=== PATIENT | female | born 1970 | race Caucasian/White ===

== ENCOUNTER 2018-05-16 06:21 | Emergency (ER) | payer OTHER ==
[2018-05-16] MEDS ORDERED: SPIR25TA80 PO (06:34)
[2018-05-16] MEDS ORDERED: LEVO75TA73 PO (06:34)
--- NOTE | 2018-05-16 06:50 | ER Report ---
History and Physical Time Seen By MD: 06:50 Hx. of Stated Complaint: PT REPORTS N/V/D. PT WAS DIAGNOSED WITH BRONCHITIS AT URGENT CARE. PT REPORTS HEADACHE. HPI/ROS CHIEF COMPLAINT: Nausea, vomiting, diarrhea, headache HISTORY OF PRESENT ILLNESS: Patient is a 47-year-old female who is here complaining of the above symptoms. Patient reports starting with cough and shortness of breath and was seen at that time on Sunday at urgent care at which point she was started on Augmentin. Patient subsequently developed nausea, vomiting, diarrhea approximately 2 days ago. Patient has tolerating oral intake but has decreased appetite. Denies urinary symptoms. Patient is afebrile, hemodynamically stable. She did take 8 mg of Zofran shortly prior to arrival. Patient did voice concern about possible carbon monoxide exposure. Patient's has similar symptoms. They have had their home tested for carbon monoxide at which point It was found to be negative. Patient reports some improvement of her respiratory symptoms. REVIEW OF SYSTEMS: Constitutional: No fever, no chills. Eyes: No discharge. ENT: No sore throat. Cardiovascular: No chest pain, no palpitations. Respiratory: + improving cough and improving shortness of breath. Gastrointestinal: No abdominal pain, + nausea, diarrhea and vomiting. Genitourinary: No hematuria or urinary symptoms Musculoskeletal: No back pain. Skin: No rashes. Neurological: + headache. Allergies: Coded Allergies: No Known Drug Allergies (Unverified , 05/16/18) Home Meds Active Scripts Metoclopramide Hcl (METOCLOPRAMIDE HCL) 10 Mg Tablet, 10 MG PO Q6-8H, #20 TAB Prov:JAXSON FUENTES DO 05/16/18 Reported Medications Spironolactone (SPIRONOLACTONE) 25 Mg Tablet, 25 MG PO BID, TAB 05/16/18 Levothyroxine Sodium (LEVOTHYROXINE SODIUM) 75 Mcg Tablet, 75 MCG PO QDAY, TAB 05/16/18 Constitutional Vital Sign - Last 24 Hours 05/16/18 05/16/18 05/16/18 05/16/18 06:25 06:27 06:30 06:51 Temp 98.2 Pulse 60 56 Resp 16 B/P (MAP) 118/71 (87) 118/71 115/68 (84) Pulse Ox 94 95 O2 Delivery Room Air 205/16/18 05/16/18 05/16/18 07:00 07:50 07:51 07:54 Pulse 53 B/P (MAP) 109/67 (81) 108/70 (83) 108/73 (85) Pulse Ox 96 Physical Exam General Appearance: The patient is alert, has no immediate need for airway protection and no signs of toxicity. No acute distress Eyes: Pupils equal and round no pallor or injection. ENT, Mouth: Mucous membranes are moist. Respiratory: There are no retractions, lungs are clear to auscultation. Cardiovascular: Regular rate and rhythm. Gastrointestinal: Abdomen is soft and non tender, no masses, bowel sounds normal. Neurological: No focal neurological findings Skin: Warm and dry, no rashes. Musculoskeletal: Neck is supple non tender. Extremities are nontender, nonswollen and have full range of motion. DIFFERENTIAL DIAGNOSIS: After history and physical exam differential diagnosis was considered for medication side effect, viral syndrome, pancreatitis, gastroenteritis, carbon monoxide poisoning, dehydration Medical Decision Making Data Points Result Diagram: 05/16/18 0724 05/16/18 0724 Laboratory Hematology Test 05/16/18 06:27 05/16/18 07:24 Influenza Virus Type A (PCR) Positive (NEGATIVE) Influenza Virus Type B (PCR) Negative (NEGATIVE) Red Blood Count 5.08 M/uL (4.17-5.56) Mean Corpuscular Volume 89.0 fL (80.0-96.0) Mean Corpuscular Hemoglobin 29.8 pg (26.0-33.0) Mean Corpuscular Hemoglobin Concent 33.5 g/dL (32.0-36.0) Red Cell Distribution Width 13.4 % (11.5-14.5) Mean Platelet Volume 7.5 fL (7.2-11.1) Neutrophils (%) (Auto) 70.6 % (39.4-72.5) Lymphocytes (%) (Auto) 17.5 % (17.6-49.6) Monocytes (%) (Auto) 10.5 % (4.1-12.4) Eosinophils (%) (Auto) 0.7 % (0.4-6.7) Basophils (%) (Auto) 0.7 % (0.3-1.4) Nucleated RBC Relative Count (auto) 0.0 /100WBC Neutrophils # (Auto) 4.9 K/uL (2.0-7.4) Lymphocytes # (Auto) 1.2 K/uL (1.3-3.6) Monocytes # (Auto) 0.7 K/uL (0.3-1.0) Eosinophils # (Auto) 0.1 K/uL (0.0-0.5) Basophils # (Auto) 0.1 K/uL (0.0-0.1) Nucleated RBC Absolute Count (auto) 0.00 K/uL Carboxyhemoglobin 1.4 % (< 5.0) Sodium Level 140 mmol/L (137-145) Potassium Level 4.3 mmol/L (3.5-5.0) Chloride Level 103 mmol/L (98-107) Carbon Dioxide Level 31 mmol/L (22-31) Blood Urea Nitrogen 14 mg/dl (7-18) Creatinine 1.00 mg/dl (0.52-1.04) Glomerular Filtration Rate Calc 59.2 Random Glucose 90 mg/dl (75-110) Calcium Level 9.1 mg/dl (8.4-10.2) Total Bilirubin 0.4 mg/dl (0.2-1.3) Aspartate Amino Transf (AST/SGOT) 73 U/L (0-35) Alanine Aminotransferase (ALT/SGPT) 130 U/L (0-56) Alkaline Phosphatase 124 U/L (0-126) Total Protein 7.6 g/dl (6.3-8.2) Albumin 4.3 g/dl (3.5-5.0) Lipase 49 U/L (23-300) Chemistry Test 05/16/18 06:27 05/16/18 07:24 Influenza Virus Type A (PCR) Positive (NEGATIVE) Influenza Virus Type B (PCR) Negative (NEGATIVE) White Blood Count 7.0 k/uL (4.5-11.0) Red Blood Count 5.08 M/uL (4.17-5.56) Hemoglobin 15.1 g/dL (12.0-16.0) Hematocrit 45.2 % (34.0-47.0) Mean Corpuscular Volume 89.0 fL (80.0-96.0) Mean Corpuscular Hemoglobin 29.8 pg (26.0-33.0) Mean Corpuscular Hemoglobin Concent 33.5 g/dL (32.0-36.0) Red Cell Distribution Width 13.4 % (11.5-14.5) Platelet Count 183 K/uL (150-450) Mean Platelet Volume 7.5 fL (7.2-11.1) Neutrophils (%) (Auto) 70.6 % (39.4-72.5) Lymphocytes (%) (Auto) 17.5 % (17.6-49.6) Monocytes (%) (Auto) 10.5 % (4.1-12.4) Eosinophils (%) (Auto) 0.7 % (0.4-6.7) Basophils (%) (Auto) 0.7 % (0.3-1.4) Nucleated RBC Relative Count (auto) 0.0 /100WBC Neutrophils # (Auto) 4.9 K/uL (2.0-7.4) Lymphocytes # (Auto) 1.2 K/uL (1.3-3.6) Monocytes # (Auto) 0.7 K/uL (0.3-1.0) Eosinophils # (Auto) 0.1 K/uL (0.0-0.5) Basophils # (Auto) 0.1 K/uL (0.0-0.1) Nucleated RBC Absolute Count (auto) 0.00 K/uL Carboxyhemoglobin 1.4 % (< 5.0) Glomerular Filtration Rate Calc 59.2 Calcium Level 9.1 mg/dl (8.4-10.2) Total Bilirubin 0.4 mg/dl (0.2-1.3) Aspartate Amino Transf (AST/SGOT) 73 U/L (0-35) Alanine Aminotransferase (ALT/SGPT) 130 U/L (0-56) Alkaline Phosphatase 124 U/L (0-126) Total Protein 7.6 g/dl (6.3-8.2) Albumin 4.3 g/dl (3.5-5.0) Lipase 49 U/L (23-300) ED Course/Re-evaluation ED Course Patient is a 39-year-old female here with complaints of nausea, vomiting, diarrhea after being started on Augmentin on Sunday for bronchitis. Patient reports improvement of her respiratory symptoms which included cough and shortness breath. Patient reports that her nausea, vomiting and diarrhea started approximately 2 days ago. Patient's symptoms may be caused by Augmentin, viral s yndrome. Patient did voice concern about possible carbon monoxide exposure. CBC, CMP, lipase, carboxyhemoglobin were checked. Flu was positive however since her symptoms started on Sunday, patient is out of the window for Tamiflu. I discussed these findings with the patient and recommended symptom management, hydration, antiemetics and Imodium as needed. Patient voiced understanding of plan. Carboxyhemoglobin, CBC, CMP, lipase were unremarkable. Patient was given a prescription for Reglan. Close PCP follow-up recommended. Return precautions provided Decision to Disposition Date: May 16, 2018 Decision to Disposition Time: 07:49 Depart Departure Latest Vital Signs Vital Signs Date Time Temp Pulse Resp B/P (MAP) Pulse Ox O2 Delivery O2 Flow Rate FiO2 05/16/18 07:54 108/73 (85) 05/16/18 07:51 53 96 05/16/18 06:27 98.2 16 Room Air Impression: Primary Impression: Flu Condition: Improved Disposition: HOME OR SELF-CARE New Scripts Metoclopramide Hcl (METOCLOPRAMIDE HCL) 10 Mg Tablet 10 MG PO Q6-8H, #20 TAB Prov: JAXSON FUENTES DO 05/16/18 Patient Instructions: Influenza (DC) Additional Instructions: Please drink plenty of water. You were diagnosed with influenza A. You may take Reglan every 6-8 hours as needed for nausea. Please return immediately if you develop worsening symptoms, inability to keep down food or fluids, high fevers, abdominal pains. Please follow-up with your family doctor in the next 48 hours for repeat evaluation JAXSON FUENTES DO May 16, 2018 06:50
[2018-05-16] MEDS ORDERED: METOCLOPRAMIDE 10 MG TAB PO ONE (07:00)
[2018-05-16 07:31] LABS: PLATELET COUNT, AUTOMATED 183 K/uL (150-450)
[2018-05-16] MEDS ORDERED: METO-224 PO (07:51)
[2018-05-16 07:54] VITALS: BP 108/73
== END 2018-05-16 07:57 | disposition home or self-care (01) ==
LOC: ER 06:57
DX: J11.1 Influenza due to unidentified influenza virus with other respiratory manifestations (principal)
CPT/HCPCS: 36415; 82375; 83690; 85025; 87502; 99283; J8597; 82040; 82247; 82310; 82374; 82435; 82565; 82947; 84075; 84132; 84155; 84295; 84450; 84460; 84520

== ENCOUNTER 2018-05-18 05:32 | Emergency (ER) | payer OTHER ==
[~2018-05-18 05:32] MED LIST: LEVO75TA73 PO; METO-224 PO; SPIR25TA80 PO
[2018-05-18 05:38] VITALS: BP 139/97
--- NOTE | 2018-05-18 05:40 | ER Report ---
History and Physical Time Seen By MD: 05:36 HPI/ROS CHIEF COMPLAINT: Shaky, anxious, pacing, nausea HISTORY OF PRESENT ILLNESS: 47-year-old female presents back to the ER. She was seen yesterday morning and diagnosed with influenza A. She's been sick for several weeks. Patient was seen a week ago at urgent care and given Augmentin which she took for 4 days, which causes diarrhea and vomiting and she discontinued it. She's been feeling quite achy and ill. She also is living in a new house and they were concerned about toxic chemicals leeching from the new building products that were in her house. They also wanted to be checked for carbon monoxide a carbon monoxide level was unremarkable yesterday morning. Patient was discharged home on metoclopramide. Patient and her admit that she's been having anxiety for 2 years related to work stress. She's been feeling depressed. She was given Reglan yesterday to control her nausea. After taking several doses. She became much more anxious and was wondering if she had an adverse reaction to the metoclopramide. REVIEW OF SYSTEMS: Respiratory: No cough, no dyspnea. Cardiovascular: No chest pain, no palpitations. Gastrointestinal: No vomiting, no abdominal pain. Musculoskeletal: As above Allergies: Coded Allergies: levofloxacin (Verified Allergy, Severe, HALLUCINATIONS, 05/18/18) metoclopramide (Verified Allergy, Severe, HALLUCINATIONS, 05/18/18) Home Meds Active Scripts Hydrocodone Bit/Acetaminophen (HYDROCODON-ACETAMINOPHEN 5-325) 1 Each Tablet, 1 EACH PO Q4-6H PRN for pain or cough suppression, #12 TAKE ONE TABLET BY MOUTH EVERY 4-6 HOURS NEEDED FOR PAIN Prov:ANTHONY LOOMIS Teddy DO 05/18/18 Hydroxyzine Hcl (HYDROXYZINE HCL) 25 Mg Tablet, 1-2 TAB PO Q6-8H PRN for anxiety or nausea, #30 Prov:ANTHONY LOOMIS Teddy DO 05/18/18 Lorazepam (LORAZEPAM) 1 Mg Tab, 1 TAB PO Q6-8H PRN for anxiety, #15 TAB Prov:EBONIEANTHONY Espinal DO 05/18/18 Metoclopramide Hcl (METOCLOPRAMIDE HCL) 10 Mg Tablet, 10 MG PO Q6-8H, #20 TAB Prov:JAXSON FUENTES DO 05/16/18 Reported Medications Spironolactone (SPIRONOLACTONE) 25 Mg Tablet, 25 MG PO BID, TAB 05/16/18 Levothyroxine Sodium (LEVOTHYROXINE SODIUM) 75 Mcg Tablet, 75 MCG PO QDAY, TAB 05/16/18 Past Medical/Surgical History Anxiety and depression Reviewed Nurses Notes: Yes Old Medical Records Reviewed: Yes Constitutional Vital Sign - Last 24 Hours 05/18/18 05/18/18 05/18/18 05:38 05:38 06:02 Temp 98.0 Pulse 70 64 Resp 22 18 B/P (MAP) 139/97 139/97 (111) Pulse Ox 91 94 O2 Delivery Room Air Room Air Physical Exam Vital signs stable, afebrile, pulse ox normal General Appearance: The patient is alert, has no immediate need for airway protection and no current signs of toxicity. Patient very anxious and agitated rubbing her stomach, she appears very fatigued and worn out. HEENT: Pupils equal and round no injection. TMs normal, oropharynx without redness or exudate Respiratory: Chest is non tender, lungs are clear to auscultation. No wheezing or rails Cardiac: regular rate and rhythm, no murmur Gastrointestinal: Abdomen is soft and non tender, no masses, bowel sounds hyperactive. Musculoskeletal: Neck: Neck is supple and non tender. No lymphadenopathy Extremities have full range of motion and are non tender. No edema or calf tenderness Skin: No rashes or lesions. DIFFERENTIAL DIAGNOSIS: After history and physical exam differential diagnosis was considered for adult fever including but not limited to viral syndromes including influenza, urinary tract infection, pneumonia and sepsis. Gastroenteritis, viral syndrome, food poisoning, Clostridium difficile diarrhea Medical Decision Making Data Points Laboratory Hematology Test 05/18/18 05:52 Lactate 1.0 mmol/L (0.7-2.1) Chemistry Test 05/18/18 05:52 Lactate 1.0 mmol/L (0.7-2.1) EKG/Imaging Imaging X-ray: Two-view chest x-ray was obtained. I viewed the images myself on the PACS system. My interpretation of the images is: No infiltrate, no effusion, normal mediastinum. The radiologist interpretation had no clinically significant variation from this interpretation. ED Course/Re-evaluation Clinical Indication for ER IV: Hydration, IV Access ED Course Patient was admitted to an examination room. H&P was done. The differential diagnoses was considered. Patient with agitation. She may be having an adverse reaction to metoclopramide. Patient also with underlying anxiety for 2 years. Patient was just today, diagnosed with influenza A. She's also been having diarrhea after taking Augmentin. She could potentially have cluster Ditzel diarrhea. I did ask her to give us a specimen of diarrhea. She had to go while present in the emergency department. She was aggressively hydrated with a liter saline. She was given Benadryl 12 5 mg IV to reverse any potential adverse effects from the metoclopramide. Patient was also given hydrocodone 5/325 for cough suppression and pain relief. A lactate was done which is unremarkable. Chest x-ray was performed which is unremarkable, esterase laboratory studies were reviewed. Patient after approximately 45 minutes is feeling much better after being medicated. She is resting comfortably. She'll be discharged home on hydroxyzine and Lortab for symptomatically relief of her flu symptoms. She's also given a prescription for Ativan for severe panic attacks. She is advised to follow-up with and get established for care. Decision to Disposition Date: May 18, 2018 Decision to Disposition Time: 06:20 Depart Departure Latest Vital Signs Vital Signs Date Time Temp Pulse Resp B/P (MAP) Pulse Ox O2 Delivery O2 Flow Rate FiO2 05/18/18 06:02 64 18 94 Room Air 05/18/18 05:38 139/97 (111) 05/18/18 05:38 98.0 Impression: Primary Impression: Adverse drug reaction Additional Impressions: Anxiety attack Influenza A Diarrhea due to drug Condition: Improved Disposition: HOME OR SELF-CARE Referrals: MALICK MICHAELS MD New Scripts Hydrocodone Bit/Acetaminophen (HYDROCODON-ACETAMINOPHEN 5-325) 1 Each Tablet 1 EACH PO Q4-6H PRN for pain or cough suppression, #12 TAKE ONE TABLET BY MOUTH EVERY 4-6 HOURS NEEDED FOR PAIN Prov: ANTHONY LOOMIS DO 05/18/18 Hydroxyzine Hcl (HYDROXYZINE HCL) 25 Mg Tablet 1-2 TAB PO Q6-8H PRN for anxiety or nausea, #30 Prov: ANTHONY LOOMIS DO 05/18/18 Lorazepam (LORAZEPAM) 1 Mg Tab 1 TAB PO Q6-8H PRN for anxiety, #15 TAB Prov: ANTHONY LOOMIS DO 05/18/18 Patient Instructions: Anxiety (ED), Clear Liquid Diet (ED) Additional Instructions: Use hydroxyzine for drying up a cough, and antinausea medicine, may also be used for anxiety 1-2 pills every 6-8 hours as needed Take hydrocodone 5/325 to suppress cough and really loose body aches Take ibuprofen 200 mg 3 tablets 3 times a day to reduce fever and reduce inflammation in your intestines Follow clear liquid diet for 24-48 hours and advance to the brat diet, bananas, rice, applesauce and toast for the next 24 hours, avoid fatty food, greasy foods, vegetables and dairy for at least 2-3 days Take Ativan/lorazepam 1 mg every 6-8 hours as needed for severe anxiety List Reglan/metoclopramide as an allergy in the future Follow-up with primary care Dr Michaels for treatment of depression and anxiety, and other health maintenance issues. Problem Qualifiers Primary Impression: Adverse drug reaction Encounter type: initial encounter Qualified Codes: T50.905A - Adverse effect of unspecified drugs, medicaments and biological substances, initial encounter ANTHONY LOOMIS DO May 18, 2018 05:40
[2018-05-18] MEDS ORDERED: diphenhydrAMINE 50 MG/ML VIAL IVP ONE (05:45)
[2018-05-18] MEDS ORDERED: APAP/HYDROCODONE 325/5 TAB PO ONE (05:45)
[2018-05-18] MEDS ORDERED: NS(*) 0.9% 1000 ML BAG 1,000 ML IV ONE (05:45)
[2018-05-18] MEDS ORDERED: HYDR-4225 PO (06:27)
[2018-05-18] MEDS ORDERED: LOR1 PO (06:27)
[2018-05-18] MEDS ORDERED: LOR5/325 PO (06:27)
--- NOTE | 2018-05-18 06:43 | RADIOLOGY IMAGING REPORT ---
FACILITY: [facility] PATIENT NAME: Aura Ordoñez : 1970 MR: [id number] V: [id number] EXAM DATE: ORDERING PHYSICIAN: ANTHONY LOOMIS TECHNOLOGIST: Location: [facility] Patient: Aura Ordoñez : 1970 Visit/Account:[id number] Date of Sevice: 05/18/2018 TWO VIEW CHEST 05/18/2018 5:43 AM. INDICATION: Cough, dyspnea, influenza A positive. COMPARISON: None. FINDINGS: Lungs are well-expanded. The lungs are clear. No pneumothorax or pleural effusion. Pulmo nary vasculature is unremarkable. Heart size is normal. IMPRESSION: No acute abnormality. Report Dictated By: Zack Jasso MD at 05/18/2018 6:39 AM Report E-Signed By: Zack Jasso MD at 05/18/2018 6:40 AM WSN:[id number]
[2018-05-18] MEDS ORDERED: ACET/HYDROC 5/325MG TH ER ONLY 2 TAB/BOTTLE PO ONE (06:45)
[2018-05-18] MEDS ORDERED: hydrOXYzine 25 MG TAB TH 2 TAB/BOTTLE PO ONE (06:45)
== END 2018-05-18 07:05 | disposition home or self-care (01) ==
LOC: ER 05:37
DX: T50.905A Adverse effect of unspecified drugs, medicaments and biological substances, initial encounter (principal); J09.X2 Influenza due to identified novel influenza A virus with other respiratory manifestations; R19.7 Diarrhea, unspecified; F41.0 Panic disorder [episodic paroxysmal anxiety]
CPT/HCPCS: 71046; 83605; 96361; 96374; 99283; J1200; J7030

== ENCOUNTER → 2018-06-04 | Outpatient (CLI) | payer OTHER ==
[~2018-06-04] MED LIST changes: +HYDR-4225 PO; +HYDR-4228 PO; +LOR1 PO; +LOR5/325 PO
== END ==
LOC: LAB 15:35
PROVIDERS: ATTEND Emergency Medicine
DX: R94.5 Abnormal results of liver function studies (principal); N39.0 Urinary tract infection, site not specified
CPT/HCPCS: 36415; 81001; 82040; 82247; 82248; 84075; 84155; 84450; 84460

== ENCOUNTER → 2018-06-26 | Outpatient (CLI) | payer OTHER | LOC: LAB 07:41 | PROVIDERS: ATTEND Emergency Medicine | DX: R74.8 Abnormal levels of other serum enzymes (principal) | CPT/HCPCS: 36415; 82040; 82247; 82248; 84075; 84155; 84450; 84460 ==

== ENCOUNTER 2018-06-29 07:58 | Emergency (ER) | payer OTHER ==
--- NOTE | 2018-06-29 08:22 | ER Report ---
History and Physical Time Seen By MD: 08:10 [facility]/ROS CHIEF COMPLAINT: Dysuria HISTORY OF PRESENT ILLNESS: She is a 47-year-old female who presents with complaint of increased urinary frequency burning on urination painful urination over the last few days. She states she was recently treated with Macrobid approximately one month ago for urinary tract infection and did have some improvement but feels that she did not have complete resolution of her symptoms. She denies any fevers or chills. She reports the pain in the suprapubic region. She also admits to a history of having elevated liver enzymes and is being worked up by Dr. Michaels as an outpatient and has a ultrasound scheduled for Sunday. REVIEW OF SYSTEMS: : Recent urinary frequency and burning on urination Musculoskeletal: Low back pain but no flank pain. Allergies: Coded Allergies: levofloxacin (Verified Allergy, Severe, HALLUCINATIONS, 06/29/18) metoclopramide (Verified Allergy, Severe, HALLUCINATIONS, 06/29/18) Home Meds Active Scripts Phenazopyridine Hcl (PHENAZOPYRIDINE HCL) 200 Mg Tablet, 200 MG PO TID for 3 Days, #9 TAB 0 Refills Prov:RENETTA VERGARA MD 06/29/18 Cephalexin 500 Mg Tab (KEFLEX 500 MG TAB) 500 Mg Tablet, 500 MG PO Q6H for 5 Days, #20 TAB 0 Refills TAKE ONE TABLET BY MOUTH EVERY SIX HOURS Prov:RENETTA VERGARA MD 06/29/18 Hydroxyzine Hcl (HYDROXYZINE HCL) 50 Mg Tablet, 50 MG PO QID for Anxiety, #30 TAB 3 Refills Prov:MALICK MICHAELS MD 06/04/18 Reported Medications Spironolactone (SPIRONOLACTONE) 25 Mg Tablet, 25 MG PO BID, TAB 05/16/18 Levothyroxine Sodium (LEVOTHYROXINE SODIUM) 75 Mcg Tablet, 75 MCG PO QDAY, TAB 05/16/18 Past Medical/Surgical History Hypothyroidism Constitutional Vital Sign - Last 24 Hours 06/29/18 08:09 Temp 97.9 Pulse 64 Resp 12 B/P (MAP) 118/74 Pulse Ox 97 O2 Delivery Room Air Physical Exam General Appearance: The patient is alert, has no immediate need for airway protection and no current signs of toxicity. Eyes: Pupils equal and round no injection. Respiratory: Chest is non tender, lungs are clear to auscultation. Cardiac: regular rate and rhythm Gastrointestinal: Abdomen is soft and non tender, no masses, bowel sounds normal. Back: No CVA tenderness Medical Decision Making Data Points Laboratory Hematology Test 06/29/18 08:02 Urine Color Straw Urine Clarity Clear Urine pH 6.0 pH (4.8-9.5) Urine Specific [place] 1.009 Urine Protein Negative mg/dL (NEGATIVE) Urine Glucose (UA) Negative mg/dL (NEGATIVE) Urine Ketones Negative mg/dL (NEGATIVE) Urine Blood Negative (NEGATIVE) Urine Nitrite Negative (NEGATIVE) Urine Bilirubin Negative (NEGATIVE) Urine Urobilinogen Negative mg/dL (0.2-1.9) Urine Leukocyte Esterase Negative (NEGATIVE) Urine RBC <1 /HPF (0-2/HPF) Urine WBC 2 /HPF (0-5/HPF) Urine Squamous Epithelial Cells Many /LPF (</=FEW) Urine Bacteria Few /HPF (NONE-FEW) Urine Mucus None /HPF (NONE-FEW) Urine HCG, Qualitative Negative (NEGATIVE) Chemistry Test 06/29/18 08:02 Urine Color Straw Urine Clarity Clear Urine pH 6.0 pH (4.8-9.5) Urine Specific [place] 1.009 Urine Protein Negative mg/dL (NEGATIVE) Urine Glucose (UA) Negative mg/dL (NEGATIVE) Urine Ketones Negative mg/dL (NEGATIVE) Urine Blood Negative (NEGATIVE) Urine Nitrite Negative (NEGATIVE) Urine Bilirubin Negative (NEGATIVE) Urine Urobilinogen Negative mg/dL (0.2-1.9) Urine Leukocyte Esterase Negative (NEGATIVE) Urine RBC <1 /HPF (0-2/HPF) Urine WBC 2 /HPF (0-5/HPF) Urine Squamous Epithelial Cells Many /LPF (</=FEW) Urine Bacteria Few /HPF (NONE-FEW) Urine Mucus None /HPF (NONE-FEW) Urine HCG, Qualitative Negative (NEGATIVE) Urinalysis Test 06/29/18 08:02 Urine Color Straw Urine Clarity Clear Urine pH 6.0 pH (4.8-9.5) Urine Specific [place] 1.009 Urine Protein Negative mg/dL (NEGATIVE) Urine Glucose (UA) Negative mg/dL (NEGATIVE) Urine Ketones Negative mg/dL (NEGATIVE) Urine Blood Negative (NEGATIVE) Urine Nitrite Negative (NEGATIVE) Urine Bilirubin Negative (NEGATIVE) Urine Urobilinogen Negative mg/dL (0.2-1.9) Urine Leukocyte Esterase Negative (NEGATIVE) Urine RBC <1 /HPF (0-2/HPF) Urine WBC 2 /HPF (0-5/HPF) Urine Squamous Epithelial Cells Many /LPF (</=FEW) Urine Bacteria Few /HPF (NONE-FEW) Urine Mucus None /HPF (NONE-FEW) Urine HCG, Qualitative Negative (NEGATIVE) ED Course/Re-evaluation ED Course 06/29/2018 8:21:03 am plan at this time will be to check urinalysis we'll also review the patient's medical records and liver enzyme testing. 06/29/2018 8:27:32 am awaiting results of urinalysis review of the electronic medical record shows patient does have very mild elevation of her transaminases. Do not feel that we need to address this at this time she does have appropriate follow-up with her primary care provider and is scheduled for an ultrasound on Sunday. 06/29/2018 8:30:01 am urinalysis is essentially unremarkable and not a clean specimen as there are many epithelial cells and some bacteria. Based on the patient's symptoms were treated empirically with oral Keflex for the next 5 days along with Pyridium I do feel the patient probably should follow-up with urology if symptoms persist. Decision to Disposition Date: Jun 29, 2018 Decision to Disposition Time: 08:41 Depart Departure Latest Vital Signs Vital Signs Date Time Temp Pulse Resp B/P (MAP) Pulse Ox O2 Delivery O2 Flow Rate FiO2 06/29/18 08:09 97.9 64 12 118/74 97 Room Air Impression: Primary Impression: Dysuria Condition: Improved Disposition: HOME OR SELF-CARE Referrals: MALICK MICHAELS MD (PCP) follow up for ultrasound on Sunday and then for follow up of elevated liver enzymes HUI CARTWRIGHT MD if your urinary symptoms persist after completion of the antibiotics; schedule a follow up appointment for further evaluation New Scripts Phenazopyridine Hcl (PHENAZOPYRIDINE HCL) 200 Mg Tablet 200 MG PO TID for 3 Days, #9 TAB 0 Refills Prov: RENETTA VERGARA MD 06/29/18 Cephalexin 500 Mg Tab (KEFLEX 500 MG TAB) 500 Mg Tablet 500 MG PO Q6H for 5 Days, #20 TAB 0 Refills TAKE ONE TABLET BY MOUTH EVERY SIX HOURS Prov: RENETTA VERGARA MD 06/29/18 Patient Instructions: Dysuria (ED) RENETTA VERGARA MD Jun 29, 2018 08:22
[2018-06-29] MEDS ORDERED: PHEN200T32 PO (08:32)
[2018-06-29] MEDS ORDERED: CEPH500T7 PO (08:32)
[2018-06-29 08:41] VITALS: BP 113/74
[2018-07-01] MEDS ORDERED: ESC10 PO (17:03)
== END 2018-06-29 08:40 | disposition home or self-care (01) ==
LOC: ER 08:25
DX: R30.0 Dysuria (principal)
CPT/HCPCS: 81001; 81025; 87088; 99282

== ENCOUNTER 2018-07-04 14:12 | Emergency (ER) | payer OTHER ==
[~2018-07-04 14:12] MED LIST changes: +CEPH500T7 PO; +ESC10 PO; +NITR-105 PO; +PHEN200T32 PO
--- NOTE | 2018-07-04 14:24 | ER Report ---
History and Physical Time Seen By MD: 14:24 HPI/ROS CHIEF COMPLAINT: Shortness of breath, hollow feeling in chest HISTORY OF PRESENT ILLNESS: 47-year-old female patient presents to emergency room with complaint of shortness of breath and hollow feeling in her chest. Patient states that she has been having a hard time for the past 2 months coping with medical problems. Patient states had she has not had any fevers or chills recently. Patient was diagnosed with pneumonia 2 months ago and then have a urinary tract infection a few weeks. Patient states that she just feels like she is not able to cope with her illnesses. She states that she has started taking Zoloft. She states that she has not had any improvement. She states this only been 3 days she's been taking that. Patient is also been taking hydroxyzine, however has just been taking it night and this does make her tired. Patient states that she did see her neurologist earlier today, she was feeling very anxious afterwards and then took hydroxyzine. She states she slept for couple hours when she woke up she did not feel any better. REVIEW OF SYSTEMS: Respiratory: No cough, no dyspnea. Cardiovascular: No chest pain, no palpitations. Gastrointestinal: No vomiting, no abdominal pain. Musculoskeletal: No back pain. Allergies: Coded Allergies: levofloxacin (Verified Allergy, Severe, HALLUCINATIONS, 07/04/18) metoclopramide (Verified Allergy, Severe, HALLUCINATIONS, 07/04/18) Home Meds Active Scripts Lorazepam (ATIVAN) 0.5 Mg Tablet, 0.5 MG PO TID PRN for ANXIETY, #21 TAB Prov:CINDA GUADALUPE 07/04/18 Nitrofurantoin Monohyd/M-Cryst (MACROBID 100 MG CAPSULE) 100 Mg Capsule, 100 MG PO BID PRN for UTI Symptoms for 3 Days, #30 CAPSULE 1 Refill Prov:MEENA NICOLE MD 07/04/18 Escitalopram Oxalate (LEXAPRO) 10 Mg Tab, 10 MG PO DAILY, #30 TAB Prov:MALICK MICHAELS MD 07/01/18 Cephalexin 500 Mg Tab (KEFLEX 500 MG TAB) 500 Mg Tablet, 500 MG PO Q6H for 5 Days, #20 TAB 0 Refills TAKE ONE TABLET BY MOUTH EVERY SIX HOURS Prov:RENETTA VERGARA MD 06/29/18 Hydroxyzine Hcl (HYDROXYZINE HCL) 50 Mg Tablet, 50 MG PO QID for Anxiety, #30 TAB 3 Refills Prov:MALICK MICHAELS MD 06/04/18 Reported Medications Spironolactone (SPIRONOLACTONE) 25 Mg Tablet, 25 MG PO BID, TAB 05/16/18 Levothyroxine Sodium (LEVOTHYROXINE SODIUM) 75 Mcg Tablet, 75 MCG PO QDAY, TAB 05/16/18 Discontinued Scripts Phenazopyridine Hcl (PHENAZOPYRIDINE HCL) 200 Mg Tablet, 200 MG PO TID for 3 Days, #9 TAB 0 Refills Prov:RENETTA VERGARA MD 06/29/18 Past Medical/Surgical History Patient has a past medical history of elevated liver enzymes, hypothyroidism, fear of dying, anxiety. Patient has surgical history of a partial hysterectomy. Reviewed Nurses Notes: Yes Hx Substance Use Disorder: No Hx Alcohol Use: No Constitutional Vital Sign - Last 24 Hours 07/04/18 07/04/18 07/04/18 07/04/18 14:17 14:20 15:30 15:35 Pulse 73 59 Resp 22 B/P (MAP) 141/75 141/75 (97) 127/50 (75) Pulse Ox 94 95 O2 Delivery Room Air 07/04/18 07/04/18 07/04/18 16:00 16:05 16:15 Pulse 60 B/P (MAP) 120/63 (82) 127/70 (89) Pulse Ox 97 Physical Exam General Appearance: The patient is alert, has no immediate need for airway pr otection and no current signs of toxicity. Respiratory: Chest is non tender, lungs are clear to auscultation. Cardiac: regular rate and rhythm Gastrointestinal: Abdomen is soft and non tender, no masses, bowel sounds normal. Musculoskeletal: Neck: Neck is supple and non tender. Extremities have full range of motion and are non tender. Skin: No rashes or lesions. Psych: Patient is tearful, she has a hard time looking me during the interview. Patient is having hard time sitting still. DIFFERENTIAL DIAGNOSIS: After history and physical exam differential diagnosis was considered for anxiety, pneumonia, pulmonary embolism. Medical Decision Making Data Points Result Diagram: 07/04/18 1520 07/04/18 1520 Laboratory Hematology Test 07/04/18 15:20 Red Blood Count 5.42 M/uL (4.17-5.56) Mean Corpuscular Volume 87.1 fL (80.0-96.0) Mean Corpuscular Hemoglobin 29.4 pg (26.0-33.0) Mean Corpuscular Hemoglobin Concent 33.8 g/dL (32.0-36.0) Red Cell Distribution Width 13.2 % (11.5-14.5) Mean Platelet Volume 7.9 fL (7.2-11.1) Neutrophils (%) (Auto) 66.0 % (39.4-72.5) Lymphocytes (%) (Auto) 22.0 % (17.6-49.6) Monocytes (%) (Auto) 11.1 % (4.1-12.4) Eosinophils (%) (Auto) 0.6 % (0.4-6.7) Basophils (%) (Auto) 0.3 % (0.3-1.4) Nucleated RBC Relative Count (auto) 0.0 /100WBC Neutrophils # (Auto) 5.8 K/uL (2.0-7.4) Lymphocytes # (Auto) 1.9 K/uL (1.3-3.6) Monocytes # (Auto) 1.0 K/uL (0.3-1.0) Eosinophils # (Auto) 0.1 K/uL (0.0-0.5) Basophils # (Auto) 0.0 K/uL (0.0-0.1) Nucleated RBC Absolute Count (auto) 0.00 K/uL D-Dimer Quantitative (PE/DVT) 0.28 ug/ml (0-0.50) Sodium Level 139 mmol/L (137-145) Potassium Level 3.8 mmol/L (3.5-5.0) Chloride Level 108 mmol/L (98-107) Carbon Dioxide Level 22 mmol/L (22-31) Blood Urea Nitrogen 14 mg/dl (7-18) Creatinine 0.90 mg/dl (0.52-1.04) Glomerular Filtration Rate Calc > 60.0 Random Glucose 92 mg/dl (75-110) Calcium Level 9.9 mg/dl (8.4-10.2) Total Bilirubin 0.8 mg/dl (0.2-1.3) Aspartate Amino Transf (AST/SGOT) 50 U/L (0-35) Alanine Aminotransferase (ALT/SGPT) 70 U/L (0-56) Alkaline Phosphatase 113 U/L (0-126) Troponin I < 0.012 ng/ml Total Protein 8.7 g/dl (6.3-8.2) Albumin 5.0 g/dl (3.5-5.0) Chemistry Test 07/04/18 15:20 White Blood Count 8.9 k/uL (4.5-11.0) Red Blood Count 5.42 M/uL (4.17-5.56) Hemoglobin 16.0 g/dL (12.0-16.0) Hematocrit 47.2 % (34.0-47.0) Mean Corpuscular Volume 87.1 fL (80.0-96.0) Mean Corpuscular Hemoglobin 29.4 pg (26.0-33.0) Mean Corpuscular Hemoglobin Concent 33.8 g/dL (32.0-36.0) Red Cell Distribution Width 13.2 % (11.5-14.5) Platelet Count 300 K/uL (150-450) Mean Platelet Volume 7.9 fL (7.2-11.1) Neutrophils (%) (Auto) 66.0 % (39.4-72.5) Lymphocytes (%) (Auto) 22.0 % (17.6-49.6) Monocytes (%) (Auto) 11.1 % (4.1-12.4) Eosinophils (%) (Auto) 0.6 % (0.4-6.7) Basophils (%) (Auto) 0.3 % (0.3-1.4) Nucleated RBC Relative Count (auto) 0.0 /100WBC Neutrophils # (Auto) 5.8 K/uL (2.0-7.4) Lymphocytes # (Auto) 1.9 K/uL (1.3-3.6) Monocytes # (Auto) 1.0 K/uL (0.3-1.0) Eosinophils # (Auto) 0.1 K/uL (0.0-0.5) Basophils # (Auto) 0.0 K/uL (0.0-0.1) Nucleated RBC Absolute Count (auto) 0.00 K/uL D-Dimer Quantitative (PE/DVT) 0.28 ug/ml (0-0.50) Glomerular Filtration Rate Calc > 60.0 Calcium Level 9.9 mg/dl (8.4-10.2) Total Bilirubin 0.8 mg/dl (0.2-1.3) Aspartate Amino Transf (AST/SGOT) 50 U/L (0-35) Alanine Aminotransferase (ALT/SGPT) 70 U/L (0-56) Alkaline Phosphatase 113 U/L (0-126) Troponin I < 0.012 ng/ml Total Protein 8.7 g/dl (6.3-8.2) Albumin 5.0 g/dl (3.5-5.0) Coagulation Test 07/04/18 15:20 D-Dimer Quantitative (PE/DVT) 0.28 ug/ml EKG/Imaging EKG Interpretation 12 lead EKG: Rhythm: normal sinus rhythm Imbler: normal QRS: normal ST segments: normal Imaging TECHNIQUE: CHEST PA LAT COMPARISON: Chest radiograph May 18, 2018 FINDINGS: The cardiomediastinal silhouette is of normal size and contour. No pleural effusion. No pneumothorax. No consolidation. The lungs are mildly hyperinflated.. IMPRESSION: No acute findings Report Dictated By: Alfie Multani MD at 07/04/2018 3:59 PM Report E-Signed By: Alfie Multani MD at 07/04/2018 4:01 PM ED Course/Re-evaluation ED Course Patient has a miniature and examined, history and physical were obtained. Differential diagnoses were considered. On examination lungs are clear, heart is regular, abdomen soft nontender. Patient is very tearful, she is shaking and feels as if she is going to . A CBC, CMP, troponin, EKG, d-dimer were done. Lab results were negative, EKG showed a normal sinus rhythm, chest x-ray showed no acute cardiopulmonary processes. I discussed the findings with patient. Patient did receive half a milligram of Ativan through her IV. She both state that this best that she has been doing in several weeks. We will go ahead and discharge her home at this time. We will have her take half a milligram of Ativan up to 3 times a day as needed for anxiety. She is to increase her exercise. She is to try and do some of her relaxation techniques. She is to return to emergency room if condition worsens. She is to follow-up with Dr. Eldridge in 2 weeks as previously scheduled. Decision to Disposition Date: Jul 04, 2018 Decision to Disposition Time: 16:47 Depart Departure Latest Vital Signs Vital Signs Date Time Temp Pulse Resp B/P (MAP) Pulse Ox O2 Delivery O2 Flow Rate FiO2 07/04/18 16:15 127/70 (89) 07/04/18 16:05 60 97 07/04/18 14:17 22 Room Air Impression: Primary Impression: Anxiety attack Condition: Improved Disposition: HOME OR SELF-CARE Referrals: MALICK MICHAELS MD (PCP) AGNIESZKA MORGAN APRN New Scripts Lorazepam (ATIVAN) 0.5 Mg Tablet 0.5 MG PO TID PRN for ANXIETY, #21 TAB Prov: CINDA GUADALUPE 07/04/18 Patient Instructions: Anxiety (ED) Additional Instructions: Get plenty of rest. Increase exercise. Follow up with Dr. Michaels and Moe as scheduled. Return to the ER if condition worsens. Continue with your current medications. Take the Ativan 0.5mg three times a day as needed for anxiety. It will take up to 30 minutes for that to start taking affect after you take it, so take it at onset of symptoms. CINDA GUADALUPE Jul 04, 2018 14:24
[2018-07-04] MEDS ORDERED: NS(*) 0.9% 1000 ML BAG 1,000 ML IV ONE (14:55)
[2018-07-04] MEDS ORDERED: LORazepam 2 MG/ML VIAL IVP ONE (14:55)
--- NOTE | 2018-07-04 15:18 | EKG ---
FACILITY: [facility] - [place] PATIENT NAME: INDER ASTORGA : [id number] MR: [id number] V: [id number] EXAM DATE: ORDERING PHYSICIAN: CINDA GUADALUPE TECHNOLOGIST: SURENDRA Fernandez Reason : ANXIOUS Blood Pressure : / mmHG Vent. Rate : 065 BPM Atrial Rate : 064 BPM P-R Int : 114 ms QRS Dur : 100 ms QT Int : 412 ms P-R-T Axes : 070 064 043 degrees QTc Int : 428 ms Sinus rhythm Nonspecific ST findings suspect early repolarization, but cannot exclude other causes No previous ECGs available Confirmed by TARUN MENDIETA ([id number]) on 07/04/2018 3:29:09 PM Referred By: ANAYELI Confirmed By:TARUN MENDIETA
[2018-07-04 15:34] LABS: PLATELET COUNT, AUTOMATED 300 K/uL (150-450)
--- NOTE | 2018-07-04 16:04 | RADIOLOGY IMAGING REPORT ---
FACILITY: [facility] - [place] PATIENT NAME: Aura Ordoñez : 1970 MR: [id number] V: [id number] EXAM DATE: ORDERING PHYSICIAN: CINDA GUADALUPE TECHNOLOGIST: Location: [facility] Patient: Aura Ordoñez : 1970 Visit/Account:[id number] Date of Sevice: 07/04/2018 HISTORY: Shortness of breath DATE: 07/04/2018 2:52 PM TECHNIQUE: CHEST PA LAT COMPARISON: Chest radiograph May 18, 2018 FINDINGS: The cardiomediastinal silhouette is of normal size and contour. No pleural effusion. No pne umothorax. No consolidation. The lungs are mildly hyperinflated.. IMPRESSION: No acute findings Report Dictated By: Alfie Multani MD at 07/04/2018 3:59 PM Report E-Signed By: Alfie Multani MD at 07/04/2018 4:01 PM WSN:[email or web address]
[2018-07-04 16:15] VITALS: BP 127/70
[2018-07-04] MEDS ORDERED: LORA-1455 PO (16:50)
== END 2018-07-04 17:04 | disposition home or self-care (01) ==
LOC: ER 14:24
DX: F41.0 Panic disorder [episodic paroxysmal anxiety] (principal)
CPT/HCPCS: 71046; 84484; 85025; 85379; 93005; 96374; 99284; J2060; J7030; 82040; 82247; 82310; 82374; 82435; 82565; 82947; 84075; 84132; 84155; 84295; 84450; 84460; 84520

== ENCOUNTER → 2018-07-05 | Outpatient (CLI) | payer OTHER ==
[~2018-07-05] MED LIST changes: +LORA-1455 PO
== END ==
LOC: US 00:35
PROVIDERS: ATTEND Emergency Medicine
DX: R74.8 Abnormal levels of other serum enzymes (principal)
CPT/HCPCS: 36415; 83540; 83550; 86706; 86707; 86803; 87340; 87350

== ENCOUNTER → 2018-07-11 | Outpatient (CLI) | payer OTHER ==
[~2018-07-11] MED LIST changes: +IOPAMIDOL 76% 150 ML INFUS BTL 150 ML ONE
--- NOTE | 2018-07-11 09:44 | RADIOLOGY IMAGING REPORT ---
FACILITY: [facility] - [place] PATIENT NAME: Aura Ordoñez : 1970 MR: [id number] V: [id number] EXAM DATE: ORDERING PHYSICIAN: MALICK CESAR TECHNOLOGIST: Location: [facility] [place] Patient: Aura Ordoñez : 1970 Visit/Account:[id number] Date of Sevice: 07/11/2018 LIVER HISTORY: Elevated liver enzymes COMPARISON: CT abdomen and pelvis performed today FINDINGS: Gallbladder: Unremarkable; no stones or sludge. Liver: Negative. Common duct: Normal, 3.2 mm diameter. Pancreas: Partially obscured by bowel, visualized aspects unremarkable. Right kidney: The kidney measures 11.6 cm in length with no evidence of hydronephrosis. Upper abdominal aorta and IVC: Patent. Ascites: None visualized. IMPRESSION: Unremarkable right upper quadrant ultrasound Report Dictated By: Tali Rene MD at 07/11/2018 9:37 AM Report E-Signed By: Tali Rene MD at 07/11/2018 9:39 AM WSN:[email or web address]
--- NOTE | 2018-07-11 10:04 | RADIOLOGY IMAGING REPORT ---
FACILITY: [facility] - [place] PATIENT NAME: Aura Ordoñez : 1970 MR: [id number] V: [id number] EXAM DATE: ORDERING PHYSICIAN: MEENA NICOLE TECHNOLOGIST: Location: [facility] [place] Patient: Aura Ordoñez : 1970 Visit/Account:[id number] Date of Sevice: 07/11/2018 CT ABDOMEN PELVIS W/ CON HISTORY: dysuria TECHNIQUE: Following administration of IV contrast contiguous axial images acquired through the abdom en/pelvis. Coronal and sagittal reformatting also performed.Dose Lowering Technique One of the following dose optimization techniques was utilized in the performance of this exam: Autom ated exposure control; adjustment of the mA and/or kV according to the patient's size; or use of an i terative reconstruction technique. Specific details can be referenced in the facility's radiology C T exam operational policy. CONTRAST: 75 mL [id number] COMPARISON: Liver ultrasound performed today FINDINGS: Visualized lung bases: Negative. Hepatobiliary: There is a tiny 4 mm hypodensity left lobe of the liver which may represent a cyst al though is too small to characterize by CT Spleen: Negative. Adrenals: Negative. Pancreas: Negative. Kidneys ureters or bladder: There is a 6 mm round hypodensity lower pole the right kidney which is to o small to characterize. There is a 1 cm cyst anterior upper pole of the left kidney at this no dem onstration of urolithiasis, hydronephrosis or hydroureter Genitalia: There is a 2.4 cm left adnexal cyst GI: Negative. Vessels/spaces/nodes: Negative. Bones/soft tissues: Negative. Additional findings: None pertinent. IMPRESSION: There is no demonstration of urolithiasis, hydronephrosis or hydroureter. 2.4 cm left adnexal cyst Report Dictated By: Tali Rene MD at 07/11/2018 9:36 AM Report E-Signed By: Tali Rene MD at 07/11/2018 9:59 AM WSN:[email or web address]
== END ==
LOC: CT 01:34
PROVIDERS: ATTEND Emergency Medicine
DX: R30.0 Dysuria (principal); E83.19 Other disorders of iron metabolism
CPT/HCPCS: 36415; 74177; 76705; 81256; 82103; 82390; 82728; 82784; 83516; 84165; 86038; Q9967

== ENCOUNTER → 2018-07-17 | Outpatient (CLI) | payer OTHER ==
[~2018-07-17] MED LIST changes: -IOPAMIDOL 76% 150 ML INFUS BTL 150 ML ONE
== END ==
LOC: LAB 12:20
PROVIDERS: ATTEND Emergency Medicine
DX: F41.0 Panic disorder [episodic paroxysmal anxiety] (principal)
CPT/HCPCS: 36415; 82306; 82607

== ENCOUNTER → 2018-10-04 | Outpatient (CLI) | payer OTHER | LOC: LAB 07:43 | PROVIDERS: ATTEND Emergency Medicine | DX: R74.8 Abnormal levels of other serum enzymes (principal) | CPT/HCPCS: 36415; 82040; 82247; 82248; 82550; 84075; 84155; 84450; 84460 ==

== ENCOUNTER → 2018-10-16 | Outpatient (CLI) | payer OTHER ==
[2018-10-16 17:09] LABS: PLATELET COUNT, AUTOMATED 242 K/uL (150-450)
== END ==
LOC: LAB 16:36
PROVIDERS: ATTEND Emergency Medicine
DX: M25.50 Pain in unspecified joint (principal)
CPT/HCPCS: 36415; 82310; 82374; 82435; 82565; 82947; 84132; 84295; 84443; 84520; 85025; 86140; 86200; 86430; 86747

== ENCOUNTER → 2018-11-11 | Outpatient (CLI) | payer OTHER ==
[~2018-11-11] MED LIST changes: +LEVO50TA86 PO
== END ==
LOC: LAB 07:02
PROVIDERS: ATTEND Emergency Medicine
DX: B34.3 Parvovirus infection, unspecified (principal)
CPT/HCPCS: 36415; 86747